=== PATIENT | female | born 1950 | race Two or more races ===

== ENCOUNTER 2020-08-19 16:31 | Emergency (ER) | payer OTHER ==
[~2020-08-19] VITALS: Ht 157.5 cm; Wt 63.5 kg
[~2020-08-19 16:31] MED LIST: CATAFLAM50 MG PO
[2020-08-19] MEDS ORDERED: KETO10TA2 PO (20:08)
[2020-08-19] MEDS ORDERED: ORPHENADRINE C100 MG PO (20:08)
[2020-08-19] MEDS ORDERED: PEPCID AC20 MG PO (20:08)
== END 2020-08-19 20:55 | disposition home or self-care (01) ==
LOC: ER 16:31
DX: R22.31 Localized swelling, mass and lump, right upper limb (principal); M79.641 Pain in right hand; M54.2 Cervicalgia; M25.511 Pain in right shoulder

== ENCOUNTER 2021-09-21 20:27 | Emergency (ER) | payer OTHER ==
[~2021-09-21] VITALS: Ht 157.5 cm; Wt 78.9 kg
[~2021-09-21 20:27] MED LIST changes: +KETO10TA2 PO; +ORPHENADRINE C100 MG PO; +PEPCID AC20 MG PO
== END 2021-09-21 22:38 | disposition home or self-care (01) ==
LOC: ER 20:27
DX: R10.31 Right lower quadrant pain (principal); R10.9 Unspecified abdominal pain; R31.9 Hematuria, unspecified; K57.90 Diverticulosis of intestine, part unspecified, without perforation or abscess without bleeding; N83.291 Other ovarian cyst, right side